=== PATIENT | male | born 1945 | race Caucasian/White ===

== ENCOUNTER 2022-11-07 11:03 | Emergency (ER) | payer OTHER ==
[~2022-11-07] VITALS: Ht 165.1 cm; Wt 80.0 kg
[2022-11-07 11:10] VITALS: O2SAT 98
[2022-11-07] MEDS ORDERED: HYDROCODONE/ACETAMINOPHEN 5/325MG TABLET PO STA (11:31)
[2022-11-07] MEDS ORDERED: TETANUS, DIPHTHERIA, PERTUSSIS VAC/PF 0.5ML (>10YR OLD) IM ONE (11:45)
[2022-11-07] MEDS ORDERED: HYDROCODONE/ACETAMINOPHEN 5/325MG TABLET PO NR (13:15)
[2022-11-07] MEDS ORDERED: ACET-2708 MT (13:17)
[2022-11-07] MEDS ORDERED: AMOX1TAB16 MT (13:17)
[2022-11-07 14:06] VITALS: BP 127/89; PULSE 105; RESP 18; TEMP 98.5
== END 2022-11-07 14:07 | disposition home or self-care (01) ==
LOC: ER 11:03
DX: S05.11XA Contusion of eyeball and orbital tissues, right eye, initial encounter (principal); I10 Essential (primary) hypertension; X58.XXXA Exposure to other specified factors, initial encounter; Y93.89 Activity, other specified; Y92.89 Other specified places as the place of occurrence of the external cause; Y99.8 Other external cause status
CPT/HCPCS: 70486; 90471; 90715; 99285

== ENCOUNTER 2022-11-08 00:25 | Emergency (ER) | payer OTHER ==
[~2022-11-08] VITALS: Ht 175.3 cm; Wt 95.6 kg
[~2022-11-08 00:25] MED LIST: ACET-2708 MT; AMOX1TAB16 MT
[2022-11-08 00:38] VITALS: O2SAT 98
[2022-11-08] MEDS ORDERED: KETOROLAC 30MG/ML VIAL IM ONE (02:00)
[2022-11-08 09:32] VITALS: BP 142/84; PULSE 100; RESP 16; TEMP 98.1
== END 2022-11-08 09:41 | disposition home or self-care (01) ==
LOC: ER 00:25
DX: H21.01 Hyphema, right eye (principal)
CPT/HCPCS: 99283; 96372; J1885

== ENCOUNTER 2023-04-12 14:57 | Emergency (ER) | payer OTHER ==
[~2023-04-12] VITALS: Ht 175.3 cm; Wt 85.0 kg
[2023-04-12 15:00] VITALS: O2SAT 100
[2023-04-12 18:01] VITALS: BP 152/89; PULSE 93; RESP 18; TEMP 98.3
== END 2023-04-12 18:19 | disposition home or self-care (01) ==
LOC: ER 14:57
DX: M79.602 Pain in left arm (principal); I10 Essential (primary) hypertension
CPT/HCPCS: 99283